=== PATIENT | male | born 1965 | race Caucasian/White ===

== ENCOUNTER → 2020-10-07 13:02 | Outpatient (BNVA) | payer OTHER, SELFPAY | PROVIDERS: PCP Internal Medicine; Visit Provider Urology | DX: N39.41 Urge incontinence (principal) | CPT/HCPCS: 81002; 99212 ==

== ENCOUNTER → 2020-11-08 09:02 | Outpatient (BNVA) | payer OTHER, SELFPAY | PROVIDERS: PCP Internal Medicine; Visit Provider Urology | DX: N39.41 Urge incontinence (principal) | CPT/HCPCS: 81002; 99212 ==

== ENCOUNTER 2021-05-23 08:22 | Outpatient (REF) | payer OTHER, SELFPAY ==
[2021-05-23 09:33] LABS: Prostate Specific Antigen 0.28 ng/mL (<0.05-4.0)
== END 2021-05-23 08:23 | disposition home or self-care (01) ==
LOC: HO.LAB 08:22
PROVIDERS: PCP Internal Medicine; Visit Provider Urology
DX: Z12.5 Encounter for screening for malignant neoplasm of prostate (principal); N13.8 Other obstructive and reflux uropathy; N40.1 Benign prostatic hyperplasia with lower urinary tract symptoms; R39.15 Urgency of urination
CPT/HCPCS: 36415; 84153

== ENCOUNTER → 2021-06-23 09:34 | Outpatient (BNVA) | payer OTHER, SELFPAY | PROVIDERS: PCP Internal Medicine | DX: N39.41 Urge incontinence (principal); R39.15 Urgency of urination | CPT/HCPCS: 51798; 99212 ==

== ENCOUNTER 2021-11-02 13:25 | Emergency (ER) | payer OTHER, SELFPAY ==
--- NOTE | ~2021-11-02 | XR_ITS ---
EXAMINATION: XR CHEST CLINICAL INFORMATION: Chest pain. COMPARISON: Chest 10/14/2018 TECHNIQUE: Frontal view of the chest was obtained. FINDINGS: The lungs are well-expanded and clear. The heart size and pulmonary vascularity is normal. There is mild dextroscoliosis of mid dorsal spine. No lytic process seen. XR/XR chest 1V IMPRESSION: Unremarkable chest exam. No change from 10/14/2018.
[2021-11-02 13:35] VITALS: BP 116/72; PULSE 60; O2SAT 98
--- NOTE | 2021-11-02 13:45 | PC.NURSE ---
BEN @[facility] [phone] ZAKI @[facility] [phone]
[2021-11-02 13:54] VITALS: BP 125/86; PULSE 70; RESP 18; TEMP 36.7; O2SAT 95
--- NOTE | 2021-11-02 14:28 | ECG_ITS ---
Test Reason : FTT Blood Pressure : / mmHG Vent. Rate : 051 BPM Atrial Rate : 051 BPM P-R Int : 206 ms QRS Dur : 076 ms QT Int : 462 ms P-R-T Axes : 020 -08 013 degrees QTc Int : 425 ms Artifact in tracing Sinus bradycardia Otherwise normal ECG When compared with ECG of 23-FEB-2018 23:17, Vent. rate has decreased BY 36 BPM Referred By: Shanell Hernández Electronically Signed By:RAMON BULL
--- NOTE | 2021-11-02 14:51 | PHA.MEDREC ---
Pharmacy Consult ? Medication Reconciliation Pharmacy has completed the medication reconciliation.
[2021-11-02 14:52] VITALS: BP 125/86; PULSE 70; O2SAT 95
--- NOTE | 2021-11-02 15:23 | ED_ITS ---
HPI - General Adult General Chief complaint: General Medical Stated complaint: FAILURE TO THRIVE Time Seen by Provider: 11/02/21 13:55 Source: patient and EMS Mode of arrival: EMS History of Present Illness HPI narrative: 56-year-old male with a past medical history of asthma, BPH, dementia, schizophrenia, BPH, presenting to ED for reported failure to thrive. Per EMS patients primary legal secretary receptionist was recently admitted to our facility and passed this AM. Others were caring for patient in the meantime however do not have long- term plan. Patient offers no complaints at present. History limited due to baseline dementia Onset (ago): day(s) Related Data Home Medications Medication Instructions Recorded Confirmed aspirin 81 mg tablet,delayed 81 mg PO DAILY 10/07/20 11/02/21 release (Adult Low Dose Aspirin) atorvastatin 20 mg tablet 20 mg PO DAILY 10/07/20 11/02/21 clonazepam 0.5 mg tablet 0.5 mg PO DAILY PRN 10/07/20 11/02/21 escitalopram oxalate 20 mg tablet 20 mg PO DAILY 10/07/20 11/02/21 paliperidone 6 mg tablet,extended 6 mg PO DAILY 10/07/20 11/02/21 release 24 hr prazosin 1 mg capsule 3 mg PO BEDTIME 10/07/20 11/02/21 zolpidem 10 mg tablet 10 mg PO BEDTIME PRN 10/07/20 11/02/21 haloperidol 0.5 mg tablet 1 mg PO DAILY PRN 06/23/21 11/02/21 oxybutynin chloride 15 mg 15 mg PO DAILY 11/02/21 11/02/21 tablet,extended release 24 hr Allergies Allergy/AdvReac Type Severity Reaction Status Date / Time No Known Allergies Allergy Verified 06/23/21 09:40 Review of Systems Review of Systems: Constitutional: No Fever Cardiovascular: No Chest Pain, No SOB Respiratory: No Cough Gastrointestinal: No Nausea, No Vomiting, No Diarrhea, No Abdominal pain Musculoskeletal: No joint pain, No Joint Swelling Skin: No Skin Lesions, No rash Neuro: No Weakness, No Headache History limited due to patient's baseline dementia Yes all other systems are reviewed and are negative PMFSH Past Medical History Attestation statement: The following information was validated with the patient. Medical History Asthma BPH (benign prostatic hyperplasia) Dementia Schizophrenia Urgency incontinence Urgency incontinence Urgency of micturition Social History Social History Advance Directives: No Physical Exam ED Vital Signs: Vital Signs - 24 hr 11/02/21 13:54 11/02/21 14:52 Temperature 98.1 F Pulse Rate 70 70 Respiratory Rate 18 Blood Pressure 125/86 125/86 Pulse Oximetry 95 95 Const General: cooperative, healthy appearing and no acute distress HENMT Head: Yes normal to inspection Ears: hearing grossly normal bilaterally General nose exam: Normal external nose present Face and sinus: Yes normal facial exam Eyes General: appearance normal, both eyes and all related structures EOM: EOMs intact bilaterally Neck Neck: Yes normal visual inspection and Yes no meningeal signs Resp Effort & Inspection: normal respiratory effort and no respiratory distress Auscultation: clear to auscultation bilaterally Cardio Rate: regular rate Heart sounds: S1 normal heart sound present and S2 normal heart sound present GI Inspection: Yes normal to inspection Palpation (GI): Soft to palpation, nontender, no guarding and not rigid Skin Rashes: no rashes Wounds: no wounds Neuro General: gait normal, tone normal, moves all extremities, no meningeal signs and no focal motor deficits Gait exam (Neuro): Normal gait present Extrem General: Yes normal to inspection Course Course Course Narrative: XR chest 1V IMPRESSION: Unremarkable chest exam. No change from 10/14/2018. -PT evaluated patient and no skilled PT indicated -1800--ED care transferred to PARAMJIT Mccord pending CBC and CM consult. Patient placed in physician observation as needs more time to be evaluated ? Medical Decision Making [facility] Narrative Medical decision making narrative: 56-year-old male with a past medical history of asthma, BPH, dementia, schizophrenia, BPH, presenting to ED for reported failure to thrive. On exam vital signs stable, NAD, baseline dementia, no focal neuro deficits. Will rule out infectious/metabolic etiology he has. Patient mostly social concerns, will obtain PT/Case Management eval Plan: EKG, labs, UA and CXR, PT/case management Medical Records Medical records reviewed: Yes I reviewed the patient's medical records. Lab Data Lab results reviewed: Yes I reviewed the patient's lab results. Result diagrams: 11/02/21 15:50 11/02/21 15:50 Labs: Lab Results 11/02/21 11/02/21 11/02/21 Range/Units 14:55 15:50 16:40 Sodium 142 (135-145) mmol/L Potassium 5.0 (3.3-5.1) mmol/L Chloride 107 (96-108) mmol/L Carbon Dioxide 25 (22-29) mmol/L Anion Gap 15 (12-20) BUN 19 H (9-16) mg/dL Creatinine 1.03 (0.5-1.4) mg/dL Estim Creat Clear Calc TNP Estimated GFR > 60 Random Glucose 95 (60-115) mg/dL Calcium 9.2 (8.4-10.2) mg/dL Magnesium 2.0 (1.6-2.6) mg/dL Total Bilirubin 0.7 (0.0-1.0) mg/dL Direct Bilirubin 0.2 (0.0-0.5) mg/dL AST 25 (5-37) U/L ALT 15 (0-40) U/L Alkaline Phosphatase 102 (39-117) U/L Total Protein 7.5 (6.5-8.0) g/dL Albumin 3.8 (3.5-5.0) g/dL COVID-19 (EDMUNDO) Invalid Negative (Negative) COVID-19 Clin Com See Note See Note ECG Data Attestation: I personally reviewed and interpreted this ECG as follows: Interpretation: EKG sinus bradycardia rate of 51. Artifact present. QTC 425. No STEMI. Discharge Plan Discharge Clinical Impression: Dementia Patient Disposition: Still a Patient Prescriptions: No Action oxybutynin chloride 15 mg tablet extended release 24 hr 15 mg PO DAILY 0RF clonazepam 0.5 mg tablet 0.5 mg PO DAILY PRN (Reason: Anxiety) 0RF atorvastatin 20 mg tablet 20 mg PO DAILY 0RF escitalopram oxalate 20 mg tablet 20 mg PO DAILY 0RF prazosin 1 mg capsule 3 mg PO BEDTIME 0RF zolpidem 10 mg tablet 10 mg PO BEDTIME PRN (Reason: Insomnia) 0RF paliperidone 6 mg tablet extended release 24hr 6 mg PO DAILY 0RF aspirin [Adult Low Dose Aspirin] 81 mg tablet,delayed release (DR/EC) 81 mg PO DAILY 0RF haloperidol 0.5 mg tablet 1 mg PO DAILY PRN (Reason: Agitation) 0RF
[2021-11-02 15:40] LABS: COVID-19 Test Invalid (Negative); IDNOW Serial# 16C4AD1C
[2021-11-02 16:16] LABS: Alanine Aminotransferase 15 U/L (0-40); Albumin Level 3.8 g/dL (3.5-5.0); Alkaline Phosphatase 102 U/L (39-117); Anion Gap 15 (12-20); Aspartate Amino Transferase 25 U/L (5-37); Bilirubin Direct 0.2 mg/dL (0.0-0.5); Bilirubin Total 0.7 mg/dL (0.0-1.0); Blood Urea Nitrogen 19 mg/dL (9-16); Calcium 9.2 mg/dL (8.4-10.2); Carbon Dioxide 25 mmol/L (22-29); Chloride 107 mmol/L (96-108); Estimated Glomerular Filt Rate > 60; Glucose Random 95 mg/dL (60-115); Sodium 142 mmol/L (135-145); Total Protein 7.5 g/dL (6.5-8.0)
[2021-11-02 17:18] LABS: COVID-19 Test Negative (Negative); IDNOW Serial# 08D9AD1C
[2021-11-02 19:57] LABS: Basophils Absolute Auto 0.1 X10*3/uL (0.0-0.2); Basophils Percent Auto 0.7 % (0-2); Eosinophils Absolute Auto 0.2 X10*3/uL (0.0-0.4); Eosinophils Percent Auto 2.6 % (0-4); Hematocrit 42.3 % (42.0-52.0); Hemoglobin 14.3 g/dl (14.0-18.0); Imm Gran Abs Auto 0.02 X10*3/uL (0.00-0.03); Imm Gran Pct Auto 0.2 % (0.0-0.4); Lymphocytes Absolute Auto 2.7 X10*3/uL (1.2-4.9); Lymphocytes Percent Auto 33.3 % (20-40); Mean Corpuscular HGB Conc 33.8 g/dl (31.0-36.0); Mean Corpuscular Hemoglobin 31.9 pg (27.0-33.0); Mean Corpuscular Volume 94.4 fL (80.0-98.0); Mean Platelet Volume 10.7 fL (9.4-12.4); Monocytes Absolute Auto 0.6 X10*3/uL (0.1-1.2); Monocytes Percent Auto 6.7 % (2-11); Neutrophils Absolute Auto 4.6 x10*3/uL (2.0-8.3); Neutrophils Percent Auto 56.5 % (45-73); Platelet Count 158 X10*3/uL (160-400); Red Blood Count 4.48 X10*6/uL (4.60-5.80); Red Cell Distribution Width 13.3 % (11.0-16.0); White Blood Count 8.2 X10*3/uL (4.8-10.8)
[2021-11-02 20:00] LABS: MANUAL DIFF FLAG NO
[2021-11-02 20:20] VITALS: BP 129/74; PULSE 88; RESP 16; TEMP 36.6; O2SAT 97
[2021-11-02 20:40] LABS: Appearance Urine CLEAR; Color Urine YELLOW; Glucose Urine UA NEG (NEG); Leukocyte Esterase Urine NEG (NEG); Nitrite Urine NEG (NEG); PH 6.5 (5.0-8.0); Specific Gravity - Urine 1.015 (1.005-1.025); Urine Blood NEG (NEG); Urine Ketones 5 MG/DL (NEG); Urine Protein NEG (NEG-TRACE)
[2021-11-02] MEDS: Prazosin HCL 1 MG CAPSULE 3 MG PO (21:19)
--- NOTE | 2021-11-03 08:17 | MHC.CM.ED ---
Received case management consult. Patient was brought to the ER. Patient's mother at [facility] on 11/01. Neighbor was caring for patient. But can no longer assist. [facility]. PCP is Anat Garber. Patient received [place] vaccines on 02/28 and 03/21. Referral is being broadcasted within 15 miles of patient's current residence. Patient is adorable and agreeable to discharge plan. Continue to monitor for d/c needs.
[2021-11-03] MEDS: Atorvastatin Calcium 20 MG TABLET PO (09:50)
[2021-11-03] MEDS: Paliperidone ER 6 MG TAB.ER.24 PO (09:50)
[2021-11-03] MEDS: Aspirin Enteric Coated 81 MG TABLET.DR PO (09:50)
[2021-11-03] MEDS: Escitalopram Oxalate 20 MG TABLET PO (09:50)
--- NOTE | 2021-11-03 10:43 | MHC.CARE ---
CARE team meets with pt to assess risk due to pt's mental health diagnosis. Upon arrival, pt is super pleasant and greets this typewriter ribbon winder with a hand shake introducing himself. Pt states he is feeling good. He reports his sleep and appetite are good. He denies SI, HI at this time. He states he always hears voices but I ignore them . Pt reports all my medications are right there, I take them everyday . Pt is aware of his plan and repeatedly thanks this typewriter ribbon winder for helping him. Pt is cleared by the psychiatric team.
--- NOTE | 2021-11-03 14:52 | MHC.CM.ED ---
[facility] can [facility] at 430pm. Action chair van booked. [facility] with chart. Patient, Rika Patel RN and Iraida LUKE aware. DM Level 2 has been obtained. New HCP completed, signed and witnessed. COpy placed in chart. Original mailed to HCP. Continue to monitor for d/c needs.
== END 2021-11-03 18:22 | disposition skilled nursing facility (03) ==
PROVIDERS: Physician Assistant; Emergency Provider Emergency Medicine; PCP Family Medicine
DX: R62.7 Adult failure to thrive (principal); F03.90 Unspecified dementia, unspecified severity, without behavioral disturbance, psychotic disturbance, mood disturbance, and anxiety; Z20.822 Contact with and (suspected) exposure to COVID-19
CPT/HCPCS: 36415; 71045; 80048; 80076; 81003; 83735; 85025; 87635; 93005; 97161; 99284; 99285